=== PATIENT | female | born 1990 | race Caucasian/White ===

== ENCOUNTER 2022-04-17 10:12 | Outpatient (CLI) | payer MEDICAID, SELFPAY ==
[2022-04-18 00:09] LABS: Free T4 Free Thyroxine* 0.87 ng/dL (0.70-1.85)
== END 2022-04-17 10:13 | disposition home or self-care (01) ==
LOC: LKVREF 10:12
PROVIDERS: PCP Physician Assistant Medical; Visit Provider Physician Assistant Medical
DX: E03.9 Hypothyroidism, unspecified (principal)
CPT/HCPCS: 84439; 84443

== ENCOUNTER 2022-11-04 08:54 | Outpatient (CLI) | payer MEDICAID, SELFPAY | END 2022-11-04 08:55 | disposition home or self-care (01) | LOC: NFLDREF 11-06 09:10 | PROVIDERS: PCP Physician Assistant Medical; Referring Provider Physician Assistant Medical; Visit Provider Physician Assistant Medical | DX: Z00.00 Encounter for general adult medical examination without abnormal findings (principal); E03.9 Hypothyroidism, unspecified; F41.9 Anxiety disorder, unspecified; Z13.6 Encounter for screening for cardiovascular disorders | CPT/HCPCS: 80053; 80061; 84439; 84443; 84481 ==

== ENCOUNTER 2022-11-10 15:58 | Outpatient (CLI) | payer MEDICAID, SELFPAY ==
--- NOTE | 2022-11-10 16:00 | CRLHL7_ITS ---
For Patients: As a result of the Cures Act, medical imaging exams and procedure reports are released immediately into your electronic medical record. You may view this report before your referring provider. If you have questions, please contact your health care provider. INDICATION: Hypothyroidism not responding to medication. TECHNIQUE: Directed thyroid ultrasound. FINDINGS: The right thyroid lobe measures 4.3 x 1.2 x 1.3 cm. The left thyroid lobe measures 4.1 x 1.1 x 1.6 cm. The isthmus measures 0.4 cm in thickness. There are no discrete thyroid lobe nodules or masses. The thyroid gland is heterogeneous in echotexture. No ana thyroidal lymphadenopathy or masses. IMPRESSION: 1. Heterogeneous echotexture of the thyroid gland. No thyroid nodule or mass. 2. Normal-sized thyroid gland. Dictated by Duong Mustafa MD @ 11/12/2022 10:10:19 PM (Electronically Signed)
== END 2022-11-10 15:59 | disposition home or self-care (01) ==
LOC: US 15:58
PROVIDERS: PCP Physician Assistant Medical; Visit Provider Physician Assistant Medical
DX: E03.9 Hypothyroidism, unspecified (principal)
CPT/HCPCS: 76536

== ENCOUNTER 2024-01-20 12:46 | Outpatient (CLI) | payer OTHER, SELFPAY ==
--- OUTSIDE RECORDS SUMMARY | 2024-01-20 12:49 | XMS_ITS | Clinical Summary ---
Author Organization [facility] Address [address] [place] [address] Care Team Providers Care Spanish Teacher Name Role Phone Kavitha Zelaya MD Primary Care Provider [phone] Kavitha Zelaya MD Unavailable [phone] Allergies No known active allergies Medications Medication Sig Dispensed Refills Start Date End Date Status ibuprofen 600 mg oral tablet Take 1 tablet (600 mg) by mouth every 6 (six) hours. 60 tablet 1 01/11/2017 Active levothyroxine (SYNTHROID) 200 mcg oral tablet Take 1 tablet (200 mcg) by mouth once daily. 90 tablet 1 01/06/2018 Active Active Problems Problem Noted Date Diagnosed Date Vacuum extractor delivery, delivered 01/11/2017 Pre-eclampsia in third trimester 01/09/2017 Post-term , 40-42 weeks of gestation Meconium in amniotic fluid 01/09/2017 Vitamin D deficiency 03/04/2016 Hypothyroidism, unspecified type 04/09/2015 Morbid obesity, unspecified obesity type 016 IUD (intrauterine device) in place 05/06/2011 Overview (05/06/2011): Mirena placed 05/06/11 Immunizations Name Administration Dates Next Due DTaP (Infanrix) 11/15/1996, 3,01/26/1992,10/23,1991 HIB 10/22/1992, 2,1991,08/21 HPV Quadrivalent 10/07/2007,03/14/2007, 7 Hep B Adult 11/27/1994,03/18/1994,01/10/1994 Influenza (2012-14) 01/18/2013 Influenza (Fluarix Quad SDS 2013-) 01/12/2014 Influenza (Fluvirin 2009-) 01/11/2010 Influenza (Fluzone 2010-) 01/21/2011 Influenza (Fluzone PF 2011-) 12/08/2011 Influenza recombinant (FluBl ok Quadrivalent PF) 03/04/2016,04/09/2015,01/12/2014,01/18,12/08/2011 Influenza split virus quadrivalent 01/21,12/12/2008,01/01/2007,02/03,01/08/1998 MMR 11/09/2002,10/22/1992 Meningococcal MCV4P 11/15/2008 Polio IPV 11/15/1996, 3,1991,08/21 Td adult absorbed PF (2 Lf) 11/09/2002 Tdap 12/08/2011,11/09/2002 Varicella 06/09/1995 Family History Medical History Relation Comments Other Disease Brother biliary atresia Diabetes Paternal Grandmother Relation Status Comments Brother Paternal Grandmother Social History Tobacco Use Types Packs/Day Years Used Date Smoking Tobacco: Never Smokeless Tobacco: Never Alcohol Use Standard Drinks/Week Comments No 0 (1 standard drink = 0.6 oz pur e alcohol) Sex and Gender Information Value Date Recorded Sex Assigned at Not on file Gender Identity Not on file Sexual Orientation Not on file Last Filed Vital Signs Vital Sign Reading Time Taken Comments Blood Pressure 120/74 06/04/2017 8:46 AM CDT Pulse 70 06/04/2017 8:46 AM CDT Temperature 37.2 ??C (98.9 ??F) 06/04/2017 8:46 AM CD T Respiratory Rate 18 01/11/2017 8:22 AM CDT Oxygen Saturation 97% 01/11/2017 8:22 AM CDT Inhaled Oxygen Concentration - - Weight 118.8 kg (261 lb 14.4 oz) 06/04/2017 8:46 AM CDT Height 162.6 cm (5' 4) 01/09/2017 3:33 PM CDT Body Mass Index 44.96 01/09/2017 3:33 PM CDT Plan of Treatment Health Maintenance Due Date Last Done Comments Anxiety Screening (HIRAL-2) 06/25/1992 Depression Assessment (PHQ-2) 06/25/1992 Thyroid-Stimulating Hormone (TSH) 07/09/2019 07/08/2018, 04/21/2018, 03/24/2018, Additional history exists Pap Smear 02/24/2020 02/23/2017, 12/22, 01/12/2014, Additional history exists COVID-19 Vaccine (2023- season) 2023 Influenza Vaccine (#1) 2023 7, 03/04/2016, 04/09/2015, Additional history exists Adult Tetanus Booster 10/14/2026 10/14/2016 , 12/08/2011, 11/09/2002, Additional history exists RSV Vaccines (1 - 1-dose 75+ series) 06/25/2066 Hepatitis C Screening Completed 01/12/2014 , 08/12/2013, 01/18/2013, Additional history exists Pneumococcal <65 Aged Out No longer e ligible based on patient's age to complete this topic Procedures Procedure Name Priority Date/Time Associated Diagnosis Comments THYROID STIMULATING HORMONE Routine 07/08/2018 9:36 AM CDT Encounter for other specified screening [ICD-10-CM] Disorder of thyroid [ICD-10-CM] 27 weeks gestation of [ICD-10-CM] PAP WITH HPV-HR REFLEX Routine 02/23/2017 2:57 PM MARKETING PERFORMANCE ANALYST Encounter for screening for malignant neoplasm of cervix HEP A/B/C PANEL Routine 01/12/2014 3:32 PM CDT Screening for STDs (sexually transmitted diseases) from Last 3 Months or Most Recently Relevant to Health Maintenance Results * THYROID STIMULATING HORMONE (07/08/2018 9:36 AM CDT) TSH 0.633 0.358 - 3.740 UIU/mL 07/08/2018 3:41 PM CDT [facility] Blood 07/08/2018 9:36 AM CDT 07/08/2018 3:19 PM CDT Lakisha Lazo MD CHEMISTRY ORD ERABLE [facility] [address] [place] [address] * PAP TEST WITH HPV-HR REFLEX (02/23/2017 2:57 PM MARKETING PERFORMANCE ANALYST) Case Report Pap Smear ? Case: [id number] ? Authorizing Provider: ??Kavitha Zelaya MD ?Collected: ? 02/23/2017 02:57 PM ? First Screen: ?Amy Rust ?Received: ?02/24/2017 03:58 PM ? Specimen: ?Cervical Thin Prep (HPV Reflex) Director Of Personnel Screen, Cervix ? 03/02/2017 8:17 AM [facility] Interpretation Negative for intraepithelial lesion or malignant cells. 03/02/2017 8:17 AM [facility] Findings Shift in vaginal wenid suggestive of bacterial vaginosis. 03/02/2017 8:17 AM [facility] Specimen Adequacy Satisfactory for evaluation. ??Endocervical/tra nsformation zone component present. ?? Obscuring inflammation present. 03/02/2017 8:17 AM [facility] Clinical Information 03/02/2017 8:17 AM [facility] LMP [id number] 03/02/2017 8:17 AM [facility] Pap Disclaimer This specimen was screened by the [facility] prior to manual review by a keysmith and/or pathologist. The Pap test is a screening test and has an irreducible false-negative rate. Routine periodic testing and follow-up of unexplained clinical signs and symptoms are important to minimize the consequence of false-negative Pap tests. Chano et al. 2012 Updated Consensus Guidelines for the Management of Abnormal Cervical Cancer Screening Tests and Cancer Precursors. J Low Genit Tract Dis 2013; 17 (5): S2-S27 03/02/2017 8:17 AM [facility] Vaginal and cervical cytologic material (specimen) SPECIMEN / Unknown 02/23/2017 2:57 PM MARKETING PERFORMANCE ANALYST 02/24/2017 3:58 PM MARKETING PERFORMANCE ANALYST Kavitha Zelaya MD PATHOLOGY/CYTOLOGY ORDERABLE Performing Organization Address City/State/[facility] Co de Phone Number [facility] [address] [place] [address] * HEP A/B/C PANEL (01/12/2014 3:32 PM CDT) HEP BC IGM MP Non-Reacti ve Non-Reacti ve 01/12/2014 8:15 PM CDT [facility] HEP A IGM MP Non-Reacti ve Non-Reacti ve 01/12/2014 8:15 PM CDT [facility] HEP BS ANTIGEN Non-Reacti ve Non-Reacti ve 01/12/2014 8:15 PM CDT [facility] Hepatitis C Antibody Non-Reacti ve Non-Reacti ve 01/12/2014 8:15 PM CDT [facility] Blood specimen (specimen) VENOUS BLOOD SPECIMEN / Unknown 01/12/2014 3:32 PM CDT 01/12/2014 7:12 PM CDT Allie Sheth MD IMMUNOLOGY ORDERABLE [facility] [address] [place] [address] from Last 3 Months or Most Recently Relevant to Health Maintenance Care Teams Spanish Teacher Relationship Specialty Start Date End Date Kavitha Zelaya MD PCP - General Obstetrics/Gynecology 12/06/16 Kavitha Zelaya MD Obstetrics/Gynecology 12/06/16
--- OUTSIDE RECORDS SUMMARY | 2024-01-20 12:49 | XMS_ITS | Referral Summary ---
Author Organization [facility] Address [address] [place] [address] Care Team Providers Care Behavior Analyst Name Role Phone Kavitha Zelaya MD Primary Care Provider [phone] Kavitha Zelaya MD Unavailable [phone] Allergies No known active allergies Medications Medication [...] (2 Lf) 11/09/2002 Tdap 12/08/2011,11/09/2002 Varicella 06/09/1995 Social History Tobacco Use Types Packs/Day Years [...] 01/09/2017 3:33 PM CDT Plan of Treatment Not on file Procedures Procedure Name Priority Date/Time Associated Diagnosis Comments THYROID STIMULATING HORMONE Routine 07/08/2018 9:36 AM CDT Encounter for other specified screening [ICD-10-CM] Disorder of thyroid [ICD-10-CM] 27 weeks gestation of [ICD-10-CM] PAP WITH HPV-HR REFLEX Routine 02/23/2017 2:57 PM FLAVORING MAKER Encounter for screening for malignant neoplasm of cervix HEP A/B/C PANEL Routine 01/12/2014 3:32 PM CDT Screening for STDs (sexually transmitted diseases) from Last 3 Months or Most Recently Relevant to Health Maintenance Results * THYROID STIMULATING HORMONE (07/08/2018 9:36 AM CDT) TSH 0.633 0.358 - 3.740 UIU/mL 07/08/2018 3:41 PM CDT [facility] Blood 07/08/2018 9:36 AM CDT 07/08/2018 3:19 PM CDT Lakisha Lazo MD CHEMISTRY ORD ERABLE [facility] [address] [facility] [place] [address] * PAP TEST WITH HPV-HR REFLEX (02/23/2017 2:57 PM FLAVORING MAKER) Case Report Pap Smear ? Case: [id number] ? Authorizing Provider: ??Kavitha Zelaya MD ?Collected: ? 02/23/2017 02:57 PM ? First Screen: ?Amy Rust. ?Received: ?02/24/2017 03:58 PM ? Specimen: ?Cervical Thin Prep (HPV Reflex) Post Acute Care Nurse Screen, Cervix ? 03/02/2017 8:17 AM [facility] Interpretation Negative for intraepithelial lesion or malignant cells. 03/02/2017 8:17 AM [facility] Findings Shift in vaginal wendi suggestive of bacterial vaginosis. 03/02/2017 8:17 AM [facility] Specimen Adequacy Satisfactory for evaluation. ??Endocervical/tra nsformation zone component present. ?? Obscuring inflammation present. 03/02/2017 8:17 AM [facility] Clinical Information 03/02/2017 8:17 AM [facility] LMP [id number] 03/02/2017 8:17 AM [facility] Pap Disclaimer This specimen was screened by the [facility] prior to manual review by a manager club and/or pathologist. The Pap test is a [...] 2013; 17 (5): S2-S27 03/02/2017 8:17 AM [facility] Vaginal and cervical cytologic material (specimen) SPECIMEN / Unknown 02/23/2017 2:57 PM FLAVORING MAKER 02/24/2017 3:58 PM FLAVORING MAKER Kavitha Zelaya MD PATHOLOGY/CYTOLOGY ORDERABLE Performing Organization Address [facility] Co de Phone Number [facility] [address] [place] [address] * HEP A/B/C PANEL (01/12/2014 3:32 PM CDT) HEP BC IGM MP Non-Reacti ve Non-Reacti ve 01/12/2014 8:15 PM CDT [facility] HEP A IGM MP Non-Reacti ve Non-Reacti ve 01/12/2014 8:15 PM CDT [facility] HEP BS ANTIGEN Non-Reacti ve Non-Reacti ve 01/12/2014 8:15 PM CDT [facility] Hepatitis C Antibody Non-Reacti ve Non-Reacti ve 01/12/2014 8:15 PM CDT [facility] Blood specimen (specimen) VENOUS BLOOD SPECIMEN / Unknown 01/12/2014 3:32 PM CDT 01/12/2014 7:12 PM CDT Allie Sheth MD IMMUNOLOGY ORDERABLE Performing Organization Address [facility] Co de Phone Number [facility] [address] [place] [facility] [place] [address] from Last 3 Months or Most Recently Relevant to Health Maintenance Care Teams Behavior Analyst Relationship Specialty Start Date End Date Kavitha Zelaya MD PCP - General Obstetrics/Gynecology 12/06/16 Kavitha Zelaya MD Obstetrics/Gynecology 12/06/16
--- OUTSIDE RECORDS SUMMARY | 2024-01-20 12:49 | XMS_ITS | Continuity of Care Document ---
Author Organization [facility] EASTERN PHILOSOPHY PROFESSOR, [id number] Address [address] [facility] [address] [place] [address] Assessment No assessment recorded. Plan of Treatment Reminders Order Date Submit Date Provider Last Modified By Organization Details Last Modified Time Details Appointments None record ed. Lab None record ed. Referral None record ed. Procedures None record ed. Surgeries None record ed. Imaging None record ed. Medication Orders None record ed. Patient TargetsNo targets recorded. Patient InstructionsNo instructions recorded. Reason for Referral None Reported. Procedures Surgical History Date Name Laterality Status Provider Name and Address Organization Details Recorded Time 12/14/19 24 Nexplanon Removal & Insertion (same day) [place] [address] [facility],[address], [place], [address], [facility] EASTERN PHILOSOPHY PROFESSOR 12/21/2023 10:14:06 tonsillectomy completed Not Available [facility] 10/31/2019 01:04:35 Contracept iud completed Not Available [facility] 10/31/2019 01:04:35 Imaging Results None recorded. Procedure Notes None recorded. Medical Equipment None Reported. Allergies No known drug allergies Medications Name Sig Start Date Stop Date Status Note LastModified by Organization Details LastModified Time sertraline 100 mg tablet TAKE 1.5 TABLETS BY MOUTH EVERY DAY active Not Available Not Available No t Available levothyroxine 50 mcg tablet TAKE 1 TABLET DAILY WITH 200 MCG TABLET FOR A TOTAL DAILY DOSE OF 250 MCG NEEDS APPT active Not Available Not Available No t Available levothyroxine 200 mcg tablet TAKE 1 TABLET BY MOUTH EVERY DAY ALONG WITH 25 MCG TAB active Not Available Not Available No t Available Vitals Date Recorded Body weight Systolic blood pressure Diastolic blood pressure Provider Name and Address Organization Details Last Updated DateTime 12/14/2023 470306.47 g 138 mm[Hg] 84 mm[Hg] Shahana Sanchez [facility] [employer]ERN PHILOSOPHY PROFESSOR 12/14/2023 12:07:39 Social History Question Answer Notes LastModified by [employer] Details LastModified Time Tobacco Smoking Status Never Smoker Tobacco *Status: Never *Note: 06/16/2018 - Not Available [facility] 10/31/2019 13:07:49 What Is Your Level Of Alcohol Consumption? None Alcohol Information not available 10/31/2019 What Is Your Level Of Caffeine Consumption? Moderate Caffeine *Status: Current Every Day *Qty: 3c/day Information not available 10/31/2019 History Of Domestic Violence No Denies All Domestic Violence Information not available 10/31/2019 Marital Status Information not available 10/31/2019 Sex: Unknown Functional Status Question Answer Note LastModified by [employer] Details LastModified Time What is your exercise level? Moderate Moderate Amount of Exercise (1-3 times weekly) Information not available 10/31/2019 Mental Status None recorded. Family History Relationship Description Onset Age of this Age Resolved Age Notes LastModified by Organization Details LastModified Time Maternal Grandmother Family history of diabetes mellitus 45 Diabet es [email or web address] Not available 10/31/2019 01:05:58 Medical History Condition Response Endocrinology- Hypothyroidism N Gynecological History Statement/Question Response Date of LMP 11/20/2023 Obstetrics History GPAL:G 2 P 2 0 0 2 Type Value Multiple Births 0 Full Term 2 Induced 0 Spontaneous 0 Premature 0 Living 2 Ectopics 0 Total 2 Immunizations Vaccine Type Date Status Provider Name and Address Organization Details Recorded Time Tdap 07/30/2018 completed Not Available [facility] 01:08:01 Influenza, split virus, trivalent, preservative 02/11/2019 completed Not Available [facility] 10/31/2019 01:08:01 Influenza, split virus, quadrivalent, preservative 02/18/2018 completed Not Available [facility] 10/31/2019 01:08:01 Past Encounters Encounter ID Performer Location Encounter Start Date Encounter Closed Date Diagnosis/Indication Diagnosis SNOMED-CT Code Diagnosis ICD10 Code [id number] PAVAN WILLARD DO [id number] [facility] [address] [facility] [address] [place]erson [place] [phone] 12/14/2023 11:46:27 12/21/2023 14:21:15 Contraception care management 202333824 Z30.9 Health Concerns Section Related Observation LastModified by Organization Detai ls LastModified Time None Recorded Concern Status LastModified by Organization Details LastModified Time None Recorded Payers Encounter Date Sequence Insurance Name Policy Number Policy Bañuelos Covered Member ID Bañuelos Member ID Guarantor Name 12/14/2023 1 [employer] ([employer]) [id number] 1 Aissatou Wright [id number] Aissatou Wright Notes Date Note Type Note Provider Name and Address Organization Details Recorded Time 12/14/2023 text/html HPI Notes: here for nexplanon [place] [address] [facility],[address], [place], [address], [facility] EASTERN PHILOSOPHY PROFESSOR 12/21/2023 10:15:18 OBGyn Episode No OBEpisode recorded.
--- OUTSIDE RECORDS SUMMARY | 2024-01-20 12:49 | XMS_ITS | Clinical Summary ---
Author Organization [facility] Address [address] [place] [address] Care Team Providers Care Apartment Coordinator Name Role Phone Lalita Quintanilla MD Primary Care Provider Allergies No known active allergies Medications Vit-Fe Fumarate-FA ( VITAMIN PO) Take 1 tablet by mouth Active acetaminophen (TYLENOL) 325 MG tablet Take 650 mg by mouth every 6 hours as needed for mild pain Active ibuprofen (ADVIL/MOTRIN) 600 MG tablet Take 600 mg by mouth every 6 hours 01/11/2017 Active levothyroxine (SYNTHROID/LEVOT HROID) 200 MCG tabletIndication s:Hypothyroidism , unspecified type Take 1 tablet (200 mcg) by mouth daily 30 tablet 1 10/14/2018 Active Active Problems Problem Noted Date Diagnosed Date Hypothyroidism 10/14/2018 Labor and delivery indication for care or interv ention 10/12/2018 (spontaneous vaginal delivery) 10/12/2018 Social History Tobacco Use Types Packs/Day Years Used Date Smoking Tobacco: Never Smokeless Tobacco: Never Alcohol Use Standard Drinks/Week Comments Not Currently 0 (1 standard drink = 0.6 oz pur e alcohol) Satartia Depression Scale Answer Date Recorded Satartia Depression Score 0 10/13/2018 Last EPDS Self Harm Result Not on file 10/13 Adolescent Education Answer Date Record ed Getting School Help Needed Not on file 12/28 Comments No Sex and Gender Information Value Date Recorded Sex Assigned at Not on file Legal Sex Female 3:51 AM MICROBIOLOGY LAB ASSISTANT Gender Identity Not on file Sexual Orientation Not on file Last Filed Vital Signs Vital Sign Reading Time Taken Comments Blood Pressure 119/80 10/14/2018 7:50 AM CDT Pulse 90 10/14/2018 7:50 AM CDT Temperature 36.7 ??C (98 ??F) 10/14/2018 7:50 AM CDT Respiratory Rate 16 10/14/2018 7:50 AM CDT Oxygen Saturation - - Inhaled Oxygen Concentration - - Weight 131.5 kg (290 lb) 10/12/2018 5:30 AM CDT Height 162.6 cm (5' 4) 10/12/2018 5:30 AM CDT Body Mass Index 49.78 10/12/2018 5:30 AM CDT Plan of Treatment Not on file Insurance [facility] INDIVIDUAL FAMILY PLANS [facility] INDIVIDUAL FAMILY PLANS [facility] INDIVIDUAL FAMILY PLANS Care Teams Apartment Coordinator Relationship Specialty Start Date End Date Lalita Quintanilla MD [address] [phone] PCP - General loading inspector 08/27/18
--- OUTSIDE RECORDS SUMMARY | 2024-01-20 12:49 | XMS_ITS | Referral Summary ---
Author Organization [facility] Address [address] [place] [address] Care Team Providers Care Mapping Specialist Name Role Phone Lalita Quintanilla MD Primary Care Provider [phone] Allergies No known active allergies Medications Vit-Fe [...] drink = 0.6 oz pur e alcohol) [place] Depression Scale Answer Date Recorded [place] Depression Score 0 10/13/2018 Last EPDS Self Harm Result Not on file 10/13 Adolescent Education Answer Date Record ed Getting School Help Needed Not on file 12/28 Comments No Sex and Gender Information Value Date Recorded Sex Assigned at Not on file Legal Sex Female 3:51 AM CUSTOM BOW MAKER Gender Identity Not on file Sexual Orientation [...] Plan of Treatment Not on file Insurance [facility] INDIVIDUAL FAMILY PLANS [facility] INDIVIDUAL FAMILY PLANS [facility] INDIVIDUAL FAMILY PLANS Care Teams Mapping Specialist Relationship Specialty Start Date End Date Lalita Quintanilla MD [address] [phone] PCP - General helmet binder 08/27/18
[2024-01-22 14:42] LABS: HPV Source Cervix; HPV, High Risk by TMA Not Detected
== END 2024-01-20 12:47 | disposition home or self-care (01) ==
PROVIDERS: PCP Physician Assistant Medical; Visit Provider Physician Assistant Medical
DX: Z00.00 Encounter for general adult medical examination without abnormal findings (principal); E03.9 Hypothyroidism, unspecified; R79.89 Other specified abnormal findings of blood chemistry; R45.89 Other symptoms and signs involving emotional state; Z13.1 Encounter for screening for diabetes mellitus; Z13.6 Encounter for screening for cardiovascular disorders; Z13.0 Encounter for screening for diseases of the blood and blood-forming organs and certain disorders involving the immune mechanism
CPT/HCPCS: 80053; 80061; 82306; 84439; 84443; 87624; 87625; 88141; 88142

== ENCOUNTER 2024-03-30 11:17 | Outpatient (CLI) | payer OTHER, SELFPAY | END 2024-03-30 11:18 | disposition home or self-care (01) | LOC: LKVREF 11:17 | PROVIDERS: PCP Physician Assistant Medical; Visit Provider Physician Assistant Medical | DX: E03.9 Hypothyroidism, unspecified (principal) | CPT/HCPCS: 84439; 84443 ==